=== PATIENT | male | born 1960 | race American Indian/Alaskan Native ===

== ENCOUNTER 2018-07-17 06:04 | Emergency (ER) | payer OTHER ==
[2018-07-17 07:15] LABS: Hematocrit 43.8 % (35.5-45.6); Hemoglobin 15.3 gm/dl (11.8-15.2); Mean Corpuscular HGB Conc 35 % (32-34); Mean Corpuscular Volume 90 fl (84-94); Platelet Count 151 K/mm3 (140-440); Red Cell Distribution Width 13.6 % (13.2-15.2)
[2018-07-17 07:19] LABS: Bilirubin,Urine NEG (Negative); Blood,Urine NEG (Negative); Color,Urine Yellow (Yellow); Hyaline Casts,Urine 1 /LPF; Mucus,Urine FEW /HPF; Urobilinogen,Urine < 2.0 mg/dL (<2.0)
[2018-07-17 07:33] LABS: BUN/Creatinine Ratio 11; Blood Urea Nitrogen 12 mg/dL (9-20); Calcium 8.8 mg/dL (8.4-10.2); Hemolysis Index 28
[2018-07-17] MEDS ORDERED: CATAPRES PO ONE (08:26)
[2018-07-17] MEDS ORDERED: NACL 0.9% 1000 ML 1,000 ML IV ONE (08:26)
[2018-07-17] MEDS ORDERED: ZOFRAN IV ONE (08:26)
--- NOTE | 2018-07-17 08:27 | Emergency Department Report ---
ED Abdominal Pain HPI - General Chief Complaint: Nausea/Vomiting/Diarrhea Stated Complaint: POSS FOOD POISONING Time Seen by Provider: 07/17/18 08:21 Source: patient Mode of arrival: Ambulatory Limitations: No Limitations - History of Present Illness Initial Comments: 58 YO WITH EPIGASTRIC PAIN AND BELCHING WITH NAUSEA, VOMITING AND DIARRHEA FOR 1 DAY. PT IS NON TOXIC, AMBULATORY AND NOW TAKING PO - Related Data Previous Rx's Medication Instructions Recorded Last Taken Type Lisinopril [Zestril TAB] 20 mg PO QDAY #30 tablet 07/17/18 Unknown Rx Ondansetron [Zofran Odt] 4 mg PO Q8HR PRN #10 tab.rapdis 07/17/18 Unknown Rx Spironolactone [Aldactone] 25 mg PO QDAY #30 tablet 07/17/18 Unknown Rx Allergies Allergy/AdvReac Type Severity Reaction Status Date / Time No Known Allergies Allergy Verified 02/03/14 05:47 ED Review of Systems ROS: Stated complaint: POSS FOOD POISONING Other details as noted in HPI Comment: All other systems reviewed and negative Constitutional: denies: chills Eyes: denies: eye pain ENT: denies: ear pain Respiratory: denies: cough Cardiovascular: denies: chest pain Endocrine: denies: excessive sweating Gastrointestinal: as per HPI, nausea, vomiting, diarrhea Genitourinary: denies: dysuria Musculoskeletal: denies: back pain Skin: denies: lesions Psychiatric: denies: anxiety Hematological/Lymphatic: denies: easy bleeding ED Past Medical Hx - Past Medical History Previous Medical History?: Yes Hx Hypertension: Yes Hx Heart Attack/AMI: No Hx Deep Vein Thrombosis: No Hx Pulmonary Embolism: No Hx Sickle Cell Disease: No Hx Asthma: No Hx COPD: No Hx Tuberculosis: No Hx HIV: No - Surgical History Past Surgical History?: Yes Hx Coronary Stent: No Hx Open Heart Surgery: No Hx Pacemaker: No Hx Internal Defibrillator: No Hx Cholecystectomy: No Hx Appendectomy: No Hx Breast Surgery: No Additional Surgical History: liver repair fx pelvis repair - Social History Smoking Status: Former Smoker Substance Use Type: None - Medications Home Medications: Home Medications Medication Instructions Recorded Confirmed Last Taken Type Lisinopril [Zestril TAB] 20 mg PO QDAY #30 tablet 07/17/18 Unknown Rx Ondansetron [Zofran Odt] 4 mg PO Q8HR PRN #10 tab.rapdis 07/17/18 Unknown Rx Spironolactone [Aldactone] 25 mg PO QDAY #30 tablet 07/17/18 Unknown Rx ED Physical Exam - General Limitations: No Limitations General appearance: alert, in no apparent distress - Head Head exam: Present: atraumatic - Eye Eye exam: Present: normal appearance, PERRL - ENT ENT exam: Present: normal exam, mucous membranes moist - Neck Neck exam: Present: normal inspection - Respiratory Respiratory exam: Present: normal lung sounds bilaterally - Cardiovascular Cardiovascular Exam: Present: regular rate - GI/Abdominal GI/Abdominal exam: Present: soft, normal bowel sounds - Rectal Rectal exam: Present: deferred - Extremities Exam Extremities exam: Present: normal inspection, full ROM - Back Exam Back exam: Present: normal inspection, full ROM - Neurological Exam Neurological exam: Present: alert, oriented X3, CN II-XII intact - Psychiatric Psychiatric exam: Present: normal affect, normal mood - Skin Skin exam: Present: warm, dry, intact ED Course Vital Signs 07/17/18 07/17/18 07/17/18 06:10 08:43 09:57 Temperature 98.4 F Pulse Rate 88 89 68 Respiratory 18 16 Rate Blood Pressure 176/112 179/112 Blood Pressure 171/114 [Right] O2 Sat by Pulse 97 98 Oximetry 07/17/18 07/17/18 10:19 11:17 Temperature Pulse Rate 68 Respiratory 18 Rate Blood Pressure 171/114 Blood Pressure [Right] O2 Sat by Pulse 99 Oximetry ED Medical Decision Making - Lab Data Result diagrams: 07/17/18 06:53 07/17/18 06:53 - Medical Decision Making Vital Signs Temp Pulse Resp BP Pulse Ox 98.4 F 68 18 171/114 99 07/17/18 06:10 07/17/18 10:19 07/17/18 11:17 07/17/18 10:19 07/17/18 11:17 Vital Signs 07/17/18 07/17/18 07/17/18 06:10 08:43 09:57 Temperature 98.4 F Pulse Rate 88 89 68 Respiratory 18 16 Rate Blood Pressure 176/112 179/112 Blood Pressure 171/114 [Right] O2 Sat by Pulse 97 98 Oximetry 07/17/18 07/17/18 10:19 11:17 Temperature Pulse Rate 68 Respiratory 18 Rate Blood Pressure 171/114 Blood Pressure [Right] O2 Sat by Pulse 99 Oximetry Labs 07/17/18 07/17/18 07/17/18 06:53 06:53 07:05 WBC 4.1 L RBC 4.90 Hgb 15.3 H Hct 43.8 MCV 90 MCH 31 MCHC 35 H RDW 13.6 Plt Count 151 Sodium 139 Potassium 3.6 Chloride 103.5 Carbon Dioxide 22 Anion Gap 17 BUN 12 Creatinine 1.1 Estimated GFR > 60 BUN/Creatinine Ratio 11 Glucose 109 H Calcium 8.8 Urine Color Yellow Urine Turbidity Clear Urine pH 5.0 Ur Specific Howell 1.011 Urine Protein 100 mg/dl Urine Glucose (UA) 50 Urine Ketones Neg Urine Blood Neg Urine Nitrite Neg Urine Bilirubin Neg Urine Urobilinogen < 2.0 Ur Leukocyte Esterase Neg Urine WBC (Auto) 11.0 H Urine RBC (Auto) 1.0 U Epithel Cells (Auto) < 1.0 Hyaline Casts 1 Urine Mucus Few LABS NOTED 1L NS AND ZOFRAN TAKING PO WITHOUT DIFFICULTY BP TREATED AND RX FOR HOME BP MEDS GIVEN ON DC DC HOME WITH INSTRUCTIONS PROVIDED. Critical care attestation.: If time is entered above; I have spent that time in minutes in the direct care of this critically ill patient, excluding procedure time. ED Disposition Clinical Impression: Gastroenteritis, Hypertension, Medication refill Disposition: [id number]-01 TO HOME OR SELFCARE Is pt being admited?: No Does the pt Need Aspirin: No Condition: Stable Instructions: Gastroenteritis (ED) Additional Instructions: bland diet banana applesauce rice toast advance as tolerated meds as ordered today hydrate well with water follow up with pcp this week referral below take bp meds daily Prescriptions: Lisinopril [Zestril TAB] 20 mg PO QDAY #30 tablet Ondansetron [Zofran Odt] 4 mg PO Q8HR PRN #10 tab.rapdis PRN Reason: Vomiting Spironolactone [Aldactone] 25 mg PO QDAY #30 tablet Referrals: YADIRA REMY MD [Primary Care Provider] - 3-5 Days Forms: Work/School Release Form(ED) Time of Disposition: 09:32
[2018-07-17 09:58] VITALS: BP 171/114
[2018-07-17] MEDS ORDERED: ZESTRIL PO ONE (10:09)
== END 2018-07-17 11:18 | disposition home or self-care (01) ==
LOC: ED 06:04
DX: K52.9 Noninfective gastroenteritis and colitis, unspecified (principal); I10 Essential (primary) hypertension; Z76.0 Encounter for issue of repeat prescription; Z87.891 Personal history of nicotine dependence
CPT/HCPCS: 36415; 80048; 81001; 85027; 96361; 96374; 99283; J2405; J7030